=== PATIENT | male | born 1945 | race Caucasian/White ===

== ENCOUNTER 2016-02-28 11:02 | Day surgery (SDC) | payer MEDICARE ==
[~2016-02-28 11:02] MED LIST: APRACLONIDINE HCL 50 DROP BTL LEFTEYE PRN; PHENYLEPHRINE HCL 50 DROP BTL LEFTEYE PRN; TROPICAMIDE 150 DROP BTL LEFTEYE PRN
[2016-02-28 11:20] VITALS: BP 141/72
== END 2016-02-28 11:03 | disposition home or self-care (01) ==
LOC: AMB 11:02
PROVIDERS: ATTEND Ophthalmology
PROC: 085K3ZZ Destruction of Left Lens, Percutaneous Approach (ICD-10-PCS; principal; 2016-02-28 11:00)
DX: H26.492 Other secondary cataract, left eye (principal)

== ENCOUNTER 2016-07-22 16:12 | Emergency (ER) | payer MEDICARE ==
--- OUTSIDE RECORDS SUMMARY | 2016-07-22 16:22 | XMS REPORT | Continuity of Care Document ---
:1945 Author Organization [facility] [place] [address] Care Team Providers Name Role Phone Provider, Not In System Primary Care Provider Unavailable Source Comments This disclosure is being made pursuant to the [employer] program and maynot contain all information available regarding this patient.[facility] Active Allergies and Adverse Reactions No Known Allergies Current Medications Be aware that medications may not be up to date as of this document. Alwaysverify current medications with the patient. Prescription Sig. Disp. Refills Start Date End Date Status amLODIPine (NORVASC) Take 5 mg by mouth Active 5 MG tablet daily. citalopram (CELEXA) Take 40 mg by mouth Active 40 MG tablet daily. disopyramide Take 150 mg by Active (NORPACE) 150 MG mouth 4 (four) capsule times daily. Every 6 hrs fluticasone (FLONASE) 1 spray by Nasal Active 50 MCG/ACT nasal route 2 (two) times spray daily. metoprolol tartrate Take 25 mg by mouth Active (LOPRESSOR) 25 MG 2 (two) times tablet daily. pramipexole (MIRAPEX) Take 0.5 mg by Active 0.5 MG tablet mouth daily. simvastatin (ZOCOR) Take 20 mg by mouth Active 20 MG tablet nightly. oxygen Inhale 2 L/min into Active the lungs as needed. sob folic acid (FOLVITE) Take 400 mcg by Active 400 MCG tablet mouth daily. Multiple Take by mouth. Active Vitamins-Minerals (MULTIVITAMIN PO) albuterol (PROVENTIL Inhale 1 puff into Active HFA;VENTOLIN HFA) 108 the lungs every 6 (90 BASE) MCG/ACT (six) hours as inhaler needed. Indications: Chronic Obstructive Lung Disease oxyCODONE Take 1-2 tablets by 60 tablet 0 11/01/2012 Active (ROXICODONE) 5 MG mouth every 4 immediate release (four) hours as tablet needed (breakthrough pain). aspirin 325 MG tablet Take 1 tablet by 30 tablet 0 11/01/2012 Active mouth daily. Active Problems Problem Noted Date Arthritis of left shoulder region 10/30/2012 Sleep apnea Overview: uses cpap Arrhythmia Overview: ? SVT-no problems x 10yrs since being on meds Tremor, essential Overview: "all over for many yrs" Anxiety COPD (chronic obstructive pulmonary disease) ([facility]) Overview: sleeps on 3 pillow at night;sob on overexertion;uses o2 prn with hot/cold weather Social History Tobacco Use Types Packs/Day Years Used Date Former Smoker Comments:quit 30 yr ago; prior hx 4 ppd Alcohol Use Drinks/Week oz/Week Comments Yes 3-4 can beer/ day Last Filed Vital Signs Vital Sign Reading Time Taken Blood Pressure 144/82 11/01/2012 8:07 AM CDT Pulse 80 11/01/2012 8:07 AM CDT Temperature 36.8 C (98.2 F) 11/01/2012 8:07 AM CDT Respiratory Rate 16 11/01/2012 8:07 AM CDT Height 1.727 m (5' 8") 10/31/2012 8:42 AM CDT Weight 106.595 kg (235 lb) 10/31/2012 8:42 AM CDT Body Mass Index 35.74 10/31/2012 8:42 AM CDT Oxygen Saturation 94% 11/01/2012 8:07 AM CDT Plan of Care Health Maintenance Due Date Last Done Comments Tetanus/Pertussis (1 - Tdap) 1965 Colonoscopy 1996 Well Adult Visit 1996 Zoster Vaccine 60+ 2006 Pneumococcal Low/Medium Risk 65+ (1 of 2 - PCV13) 10/15/2011 Influenza Immunization (#1) 2015 Results from Last 3 Months Not on file
--- OUTSIDE RECORDS SUMMARY | 2016-07-22 16:23 | XMS REPORT | Continuity of Care Document ---
:1945 Author Organization [facility] ([facility]) Address [place] [address] Phone [phone] Care Team Providers Name Role Phone Savanna Delgado Primary Care Provider [phone] Source Comments This disclosure is being made pursuant to the Care Everywhere program, applicable federal and state laws, and may not contain all informaitonavailable regarding this patient.[facility] ([facility]) Active Allergies and Adverse Reactions No Known Allergies Current Medications Prescription Sig. Disp. Refills Start Date End Date Status albuterol 90 inhale 1 puff by 02/24/2014 Active mcg/Actuation inhaler inhalation route every 4 - 6 hours as needed aspirin 325 mg tablet take 1 tablet by 02/24/2014 Active oral route every day solifenacin (VESICARE) 10 Take 10 mg by mouth Active mg tablet daily. levothyroxine 100 mcg Take 100 mcg by Active tablet mouth every morning before breakfast. simvastatin 10 mg tablet Take 10 mg by mouth Active every evening. metFORMIN 500 mg tablet Take 500 mg by Active mouth 2 times daily with meals. FLUoxetine 40 mg capsule Take 40 mg by mouth Active 2 times daily. ferrous sulfate 325 mg Take 325 mg by Active (65 mg iron) tablet mouth 3 times daily. cholecalciferol 50,000 Take 1 capsule by Active unit capsule mouth daily. fluticasone 50 Use 2 Sprays into Active mcg/Actuation nasal spray both nostrils daily. furosemide 20 mg tablet Take 20 mg by mouth Active every morning. pyridostigmine 60 mg Take 30 mg by mouth Active tablet 2 times daily. metoPROLol tartrate 25 mg Take 25 mg by mouth Active tablet 2 times daily. Active Problems Problem Noted Date Essential hypertension 09/22/2014 Hyperlipidemia 09/22/2014 Paroxysmal atrial fibrillation 09/22/2014 Social History Tobacco Use Types Packs/Day Years Used Date Former Smoker Last Filed Vital Signs Vital Sign Reading Time Taken Blood Pressure 130/80 03/08/2016 12:13 PM NETWORK DEVELOPMENT COORDINATOR Pulse 72 03/08/2016 12:13 PM NETWORK DEVELOPMENT COORDINATOR Temperature - - Respiratory Rate - - Height - - Weight 112.946 kg (249 lb) 03/08/2016 12:13 PM NETWORK DEVELOPMENT COORDINATOR Body Mass Index - - Oxygen Saturation - - Plan of Care Date Type Specialty Providers Description 03/21/2017 Appointment Heart and Vascular David Doss, Chief Comp: Patient MD Reported Reason For [address] [place] [address] [phone] (Fax) Health Maintenance Due Date Last Done Comments HCV Screening 1945 Hepatitis B Vaccine (1 of 3 - Primary Series) 1945 Tdap Vaccine 1957 Lipid Disorder Screening 1964 Td Vaccine 1964 Colonoscopy 10/13/1996 Prostate Cancer Screening 1996 Zoster Vaccine 2006 Pneumococcal Vaccine (1 of 2 - PCV13) 10/15/2011 Influenza Vaccine: Seasonal (#1) 09/20/2015 Results from Last 3 Months Not on file
[2016-07-22] MEDS ORDERED: ACYCLOVIR 800 MG TABLET PO ONE (16:50)
[2016-07-22] MEDS ORDERED: oxyCODONE HCL/ACETAMINOPHEN 1 TAB TABLET PO ONE (16:52)
[2016-07-22] MEDS ORDERED: diphenhydrAMINE HCL 25 MG CAPSULE PO ONE (16:53)
[2016-07-22] MEDS ORDERED: oxyCODONE HCL/ACETAMINOPHEN 1 TAB TABLET ONE ×2 (17:00→17:04)
[2016-07-22] MEDS ORDERED: diphenhydrAMINE HCL 25 MG CAPSULE ONE ×2 (17:00→17:04)
[2016-07-22] MEDS ORDERED: ACYCLOVIR 800 MG TABLET ONE ×2 (17:01→17:04)
--- NOTE | 2016-07-22 17:01 | ERNOTE ---
Integumentary HPI - Narrative Date of Service: 07/22/16 - General Presenting Symptoms: rash Time Seen by Provider: 07/22/16 16:17 Source: patient Exam Limitations: no limitations - Immun/Allergies/Home Medications Immunizations: IMMUNIZATION HX Immunizations Up to Date Yes History of Influenza Vaccine Yes Hx Pneumococcal Vaccination Yes Allergies/Adverse Reactions: Allergies Allergy/AdvReac Type Severity Reaction Status Date / Time No Known Allergies Allergy Verified 07/22/16 16:25 Home Medications: HOME MEDICATIONS Citalopram Hydrobromide [Citalopram HBr] 40 mg PO DAILY 01/27/12 [Last Taken Unknown] Albuterol Sulfate [Albuterol Sulfate Hfa] 2 puff IH Q4H PRN 01/22/13 [Last Taken 11/08/14] Folic Acid 0.4 mg PO DAILY 01/22/13 [Last Taken Unknown] Multivitamins [Multivitamin Kimberlee] 1 cap PO DAILY 01/22/13 [Last Taken Unknown] Simvastatin 20 mg PO HS 01/22/13 [Last Taken 09/21/13 21:00] Potassium Chloride [Klor-Con 10] 10 meq PO DAILY 09/11/13 [Last Taken Unknown] Aspirin 325 mg PO DAILY 01/29/14 [Last Taken 10/13/14] Flecainide Acetate [Tambocor] 50 mg PO BID 11/05/14 [Last Taken Unknown] Sodium Chloride [Saline Nasal Mist] 2 spray NS BID PRN 11/05/14 [Last Taken Unknown] Fluticasone/Vilanterol [Breo Ellipta 100-25 Mcg INH] 1 puff IH DAILY 06/28/15 [ Last Taken Unknown] Pramipexole Di-HCl [Mirapex] 0.5 mg PO TID 06/28/15 [Last Taken Unknown] Albuterol Sulfate [Albuterol Sulfate 2.5 MG/0.5ML] 2.5 mg IH Q6H #30 vial.neb [Last Taken Unknown] Albuterol Sulfate/Ipratropium [Duoneb 2.5-0.5MG/3ML Soln] 3 ml IH Q6HRT #30 nebu 09/22/15 [Last Taken Unknown] Amlodipine Besylate [Norvasc] 2.5 mg PO BID #60 tab 08/03/16 [Last Taken Unknown ] Metoprolol Tartrate [Lopressor] 25 mg PO BID #60 tablet 09/22/15 [Last Taken Unknown] predniSONE [Prednisone] 20 mg PO DAILY #15 tablet 09/22/15 [Last Taken Unknown] Acyclovir [Zovirax] 800 mg PO 5XD #50 tab 07/22/16 [Last Taken Unknown] oxyCODONE HCL/ACETAMINOPHEN [Percocet 5 MG/325 MG] 1 tab PO Q4H PRN #20 tab 05/05 [Last Taken Unknown] - History of Present Illness Narrative: Pt. comes in with rash to R flank and ribcage that started 2 days ago. Pt. denies any SOB, CP, NVD, dizziness, fever, alleviating factors, aggravating factors or prehospital treatment. Review of Systems - Review of Systems Constitutional: Present: no symptoms reported. Absent: recent illness, fever, chills, weakness, fatigue, malaise EYE: Present: no symptoms reported ENT: Present: no symptoms reported Respiratory: Present: no symptoms reported. Absent: shortness of breath, cough , wheezing Cardiology: Present: no symptoms reported. Absent: chest pain, palpitations, edema Gastrointestinal/Abdominal: Present: no symptoms reported. Absent: nausea, vomiting, diarrhea Genitourinary: Present: no symptoms reported Musculoskeletal: Present: back pain - R flank and ribs Skin: Present: rash - R flank and rib cage Neurological: Present: no symptoms reported. Absent: headache, dizziness/light- headedness, numbness, tingling All Other Systems: All systems neg except as marked - Patient's Past Medical History Patient History - Medical: Arthritis, Cataracts, Osteoporosis Patient History - Cardiac/Respiratory: COPD Patient History - Cancer: No Hx of Cancer Patient History - Surgical Procedures: Cataracts, Total Hip Replacement, Total Knee Replacement, Other Patient History - Other: None - Family History Brother Family History - Medical: , No pertinent hx Family History - Cardiac/Respiratory: No pertinent hx Father Family History - Medical: Family History - Cardiac/Respiratory: No pertinent hx, Myocardial Infarction Mother Family History - Medical: , No pertinent hx Family History - Cardiac/Respiratory: Myocardial Infarction Sister Family History - Medical: , Diabetes Type 2 Family History - Cardiac/Respiratory: No pertinent hx - Social History Living Situations: home Abuse History: No History of abuse Psych History: No pertinent hx Does anyone smoke in the home?: No Smoking Status: Former smoker Alcohol Use: heavy Drug Use: none - Immunizations Immunizations Up to Date: Yes Hx Pneumococcal Vaccination: Yes History of Influenza Vaccine: Yes Physical Exam - Physical Exam General Appearance: Present: wd/wn, alert, no apparent distress Eye Exam: Normal inspection: bilateral, PERRL: bilateral, EOMI: bilateral Ears, Nose, Throat: Present: normal ENT inspection, normal pharynx Neck: Present: normal inspection, nontender. 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 has no other symptoms so will start on acyclovir and have him follow up with his PCP on Sunday - Vital Signs Patient's Vital Signs:: I have reviewed the patient's vital signs. Vital Signs: Vital Signs 07/22/16 16:15 Temperature 35.7 C L Pulse Rate 81 Respiratory 16 Rate Blood Pressure 150/65 O2 Sat by Pulse 94 Oximetry - Progress/Reassessment Chief Complaint: Rash Departure Clinical Impression: Shingles rash Qualifiers: Herpes zoster complications: without complications Qualified Code(s): B02.9 - Zoster without complications - Departure Disposition: Home self-care Condition: Good Instructions: Shingles, [id number] Additional Instructions: Please follow up with primary provider in 2-3 days for follow up. Please take benadryl over the counter every 6 hours as needed for itching. Referrals: Savanna Delgado MD [Primary Care Provider] - Prescriptions: Acyclovir [Zovirax] 800 mg PO 5XD #50 tab oxyCODONE HCL/ACETAMINOPHEN [Percocet 5 MG/325 MG] 1 tab PO Q4H PRN #20 tab PRN Reason: Pain
[2016-07-22 17:16] VITALS: BP 146/86
== END 2016-07-22 17:17 | disposition home or self-care (01) ==
LOC: ER 16:12
DX: B02.9 Zoster without complications (principal); J44.9 Chronic obstructive pulmonary disease, unspecified; Z87.891 Personal history of nicotine dependence

== ENCOUNTER 2017-04-07 12:47 | Emergency (ER) | payer MEDICARE ==
[2017-04-07 12:57] VITALS: BP 146/76
--- NOTE | 2017-04-07 13:34 | ERNOTE ---
Upper Extremity HPI - Narrative Date of Service: 04/07/17 - General Extremities Pain Location: elbow: right Time Seen by Provider: 04/07/17 13:21 Source: patient, family, RN notes reviewed Exam Limitations: no limitations - Immun/Allergies/Home Medications Immunizations: IMMUNIZATION HX Immunizations Up to Date Yes History of Influenza Vaccine Yes Hx Pneumococcal Vaccination Yes Allergies/Adverse Reactions: Allergies Allergy/AdvReac Type Severity Reaction Status Date / Time No Known Allergies Allergy Verified 04/07/17 13:00 Home Medications: HOME MEDICATIONS Citalopram Hydrobromide [Citalopram HBr] 40 mg PO DAILY 01/27/12 [Last Taken Unknown] Albuterol Sulfate [Albuterol Sulfate Hfa] 2 puff IH Q4H PRN 01/22/13 [Last Taken 11/08/14] Multivitamins [Multivitamin Kimberlee] 1 cap PO DAILY 01/22/13 [Last Taken Unknown] Simvastatin 20 mg PO HS 01/22/13 [Last Taken 09/21/13 21:00] Potassium Chloride [Klor-Con 10] 10 meq PO DAILY 09/11/13 [Last Taken Unknown] Flecainide Acetate [Tambocor] 50 mg PO BID 11/05/14 [Last Taken Unknown] Pramipexole Di-HCl [Mirapex] 0.5 mg PO TID 06/28/15 [Last Taken Unknown] Albuterol Sulfate [Albuterol Sulfate 2.5 MG/0.5ML] 2.5 mg IH Q6H #30 vial.neb [Last Taken Unknown] Amlodipine Besylate [Norvasc] 2.5 mg PO BID #60 tab 09/22/15 [Last Taken Unknown ] Metoprolol Tartrate [Lopressor] 25 mg PO BID #60 tablet 09/22/15 [Last Taken Unknown] Warfarin Sodium [Coumadin] 5 mg PO DAILY 09/06/16 [Last Taken Unknown] Folic Acid 0.4 mg PO DAILY 02/12/17 [Last Taken Unknown] Furosemide 20 mg PO DAILY 02/12/17 [Last Taken Unknown] Warfarin Sodium [Coumadin] 2.5 mg PO DAILY 04/07/17 [Last Taken Unknown] - History of Present Illness Narrative: 71 year old male presents to the ED with his for an injury to his right elbow that occurred at home shortly [employer]. He slipped and fell on the ice while trying to catch an escaped chicken. He is on Coumadin and reports severe swelling in the elbow. He also has mild discomfort in the right shoulder. The shoulder has been replaced. He reports having his usual ROM in the shoulder. He denies any head injury or LOC. Occurred: just prior to arrival Location of Incident: home Method of Injury: Reports: fell Reason for Fall: Reports: slipped Loss of Consciousness: Reports: no loss of consciousness Associated Symptoms: Denies: tingling, weakness, numbness distally Other Injuries: Reports: none Prior Treament: Denies: recently seen Review of Systems - Review of Systems Constitutional: Absent: recent illness, fever, malaise EYE: Present: no symptoms reported ENT: Present: no symptoms reported Respiratory: Present: no symptoms reported Cardiology: Present: no symptoms reported Gastrointestinal/Abdominal: Present: no symptoms reported Genitourinary: Present: no symptoms reported Musculoskeletal: Present: See HPI. Absent: back pain, neck pain Skin: Present: lumps. Absent: lesions Neurological: Present: See HPI. Absent: headache, dizziness/light-headedness Endocrine: Present: no symptoms reported Hematologic/Lymphatic: Present: easy bruising, easy bleeding Psych: Present: no symptoms reported - Patient's Past Medical History Patient History - Medical: Depression Patient History - Cardiac/Respiratory: Bronchitis, COPD, CVA/Stroke, Hyperlipidemia, Myocardial Infarction, Pneumonia Patient History - Cancer: No Hx of Cancer Patient History - Surgical Procedures: Orthopedic Patient History - Other: None - Family History Brother Family History - Medical: , No pertinent hx Family History - Cardiac/Respiratory: No pertinent hx Father Family History - Medical: Family History - Cardiac/Respiratory: No pertinent hx, Myocardial Infarction Mother Family History - Medical: , No pertinent hx Family History - Cardiac/Respiratory: Myocardial Infarction Sister Family History - Medical: , Diabetes Type 2 Family History - Cardiac/Respiratory: No pertinent hx - Social History Living Situations: spouse Abuse History: No History of abuse Psych History: Hx of Depression Smoking Status: Never smoker Have you smoked in the past 12 months: No Do you dip or chew tobacco: No Alcohol Use: occasionally Drug Use: none - Immunizations Immunizations Up to Date: Yes Hx Pneumococcal Vaccination: Yes History of Influenza Vaccine: Yes Physical Exam - Physical Exam General Appearance: Present: wd/wn, alert, no apparent distress Head Exam: Present: normal inspection, no evidence of injury Neck: Present: normal inspection, nontender, supple Respiratory: Present: no respiratory distress, no accessory muscle use Cardiovascular/Chest: Present: normal peripheral pulses Extremity Exam: Present: decreased range of motion - Right elbow, joint swelling - Right elbow - just distal to olecranon process. Absent: bony tenderness, joint redness Neurological Exam: Present: alert, oriented, normal mood/affect, no motor/ sensory deficits Skin Exam: Present: normal color, warm/dry ED Progress - Vital Signs Patient's Vital Signs:: I have reviewed the patient's vital signs. Vital Signs: Vital Signs 04/07/17 12:54 Temperature 37.1 C Pulse Rate 70 Respiratory 16 Rate Blood Pressure 146/76 O2 Sat by Pulse 96 Oximetry - X-Ray X-Ray #1 X-Ray: elbow - Right Interpretation: Interp. by me X-ray Comments: Soft tissue swelling noted without acute osseous abnormality - Progress/Reassessment Chief Complaint: Upper Extremity Injury/Problem Progress:: Unchanged Departure Clinical Impression: Contusion, elbow Qualifiers: Encounter type: initial encounter Laterality: right Qualified Code(s): S50.01XA - Contusion of right elbow, initial encounter - Departure Disposition: Home self-care Condition: Good Instructions: Contusion, [id number] Additional Instructions: Continue your current medications Wear LAURA wrap as needed for support/compression Ice periodically Tylenol for pain Follow up with your doctor as needed for new/worsening symptoms Referrals: Savanna Delgado MD [Primary Care Provider] -
== END 2017-04-07 14:30 | disposition home or self-care (01) ==
LOC: ER 12:47
DX: S50.01XA Contusion of right elbow, initial encounter (principal); J44.0 Chronic obstructive pulmonary disease with (acute) lower respiratory infection; E78.5 Hyperlipidemia, unspecified; I25.2 Old myocardial infarction; Z86.73 Personal history of transient ischemic attack (TIA), and cerebral infarction without residual deficits; Z79.01 Long term (current) use of anticoagulants; Z96.611 Presence of right artificial shoulder joint; W00.0XXA Fall on same level due to ice and snow, initial encounter

== ENCOUNTER 2018-01-14 05:58 | Inpatient (IN) | payer MEDICARE ==
[2018-01-14] MEDS ORDERED: RINGER'S SOLUTION,LACTATED 1,000 ML IV PRN (06:00)
[2018-01-14] MEDS ORDERED: ROPIVACAINE HCL/PF 100 MG, EPINEPHrine 0.2 MG, KETOROLAC TROMETHAMINE 30 MG in NORMAL S... IJ PRN (06:00)
[2018-01-14] MEDS ORDERED: ceFAZolin SODIUM 1 GM VIAL IV PRN (06:00)
[2018-01-14] MEDS ORDERED: ROPIVACAINE HCL/PF 40 MG in NORMAL SALINE 16 ML IJ PRN (06:00)
[2018-01-14] MEDS ORDERED: TRANEXAMIC ACID 1,000 MG in NORMAL SALINE 100 ML IV PRN (06:00)
[2018-01-14] MEDS ORDERED: BUPIVACAINE HCL/EPINEPHRINE 50 ML VIAL IJ PRN (06:00)
--- NOTE | 2018-01-14 06:59 | ANES ---
Anesthesia Pre Procedure Eval Vitals/Labs: Last Vital Signs Temp 36.7 C 01/14/18 06:20 Pulse 62 01/14/18 06:20 Resp 16 01/14/18 06:20 BP 142/75 01/14/18 06:20 Pulse Ox 94 01/14/18 06:20 HOME MEDICATIONS Albuterol Sulfate [Albuterol Sulfate Hfa] 2 puff IH Q4H PRN 01/22/13 [Last Taken 11/08/14] Multivitamins [Multivitamin Kimberlee] 1 cap PO DAILY 01/22/13 [Last Taken 01/13/18] Pramipexole Di-HCl [Mirapex] 0.5 mg PO TID 06/28/15 [Last Taken 01/13/18] Albuterol Sulfate [Albuterol Sulfate 2.5 MG/0.5ML] 2.5 mg IH Q6H #30 vial.neb 09/22/15 [Last Taken 01/13/18] traMADol HCL [Ultram] 50 mg PO QID PRN #30 tab 09/17/17 [Last Taken Unknown] furosemide 20 mg tablet 20 mg PO DAILY #90 tab 09/24/17 [Last Taken 01/13/18] metoprolol tartrate 25 mg tablet 25 mg PO BID #60 tab 09/26/17 [Last Taken 01/14/18] rosuvastatin 10 mg tablet 10 mg PO DAILY #90 tab 10/29/17 [Last Taken 01/13/18] flecainide 100 mg tablet 50 mg PO BID #60 tab 11/22/17 [Last Taken 01/14/18] Budesonide/Formoterol Fumarate [Symbicort 160-4.5 Mcg Inhaler] 10.2 gm INHALATION 11/27/17 [Last Taken Unknown] potassium chloride ER 10 mEq tablet,extended release(part/cryst) 10 meq PO DAILY #90 tab 12/26/17 [Last Taken 01/13/18] citalopram 40 mg tablet 40 mg PO DAILY #90 tab 01/02/18 [Last Taken 01/13/18] warfarin 2.5 mg tablet 2.5 mg PO QMWF #36 tab 01/02/18 [Last Taken 01/08/18] warfarin 5 mg tablet 5 mg PO QTUTHSASU tab 01/02/18 [Last Taken 01/08/18] amlodipine 2.5 mg tablet 2.5 mg PO BID #60 tab 01/09/18 [Last Taken 01/13/18] Allergies/Adverse Reactions: Allergies Allergy/AdvReac Type Severity Reaction Status Date / Time No Known Allergies Allergy Verified 01/14/18 06:16 - Planned Procedure Planned Procedure: LTK, Right Knee Scope Medication List Reviewed:: Yes Allergies Verified: Yes Medical History (Last Reviewed 01/14/18 @ 06:44 by Babar Gilliland CRNA) Arthritis Onset Date: 2014 Rt foot Asthma Onset Date: Unknown COPD (chronic obstructive pulmonary disease) Onset Date: Unknown CPAP (continuous positive airway pressure) dependence Setting on 9 Cubital tunnel syndrome Onset Date: 2009 Avelino mild per EMGs Degenerative joint disease (DJD) of hip Onset Date: Unknown Dupuytren's contracture of right hand Onset Date: 03/2011 Hammer toe of second toe of right foot Onset Date: 2014 Hyperlipidemia Onset Date: Unknown Knee pain, right Onset Date: Unknown Osteoporosis Onset Date: Unknown Parkinsonism Onset Date: Unknown Primary Sleep apnea Onset Date: Unknown Carpal tunnel syndrome Onset Date: 02/2010 Moderate left and mild right per EMGs 02/2010. Also prev hx and sx Contusion of elbow, right Onset Date: 04/18/17 Finger mass, right Onset Date: 11/2011 Dr. Pulido. Rt index finger mass removal Hx of wrist surgery Onset Date: 2004 Bilateral cubital tunnel surgery Dr. Pulido. 04/12/10 right 05/12/10 left Surgical History (Last Reviewed 01/14/18 @ 06:45 by Babar Gilliland CRNA) History of carpal tunnel surgery Avelino 1998. Dr. Pulido redo right 04/12/10 History of hand surgery Right - Dr. Pulido. Partial palmar fasciectomy for Dupuytren contracture nodule. History of left hip replacement Onset Date: 02/03/13 02/03/13 History of left shoulder replacement Onset Date: 2012 History of right shoulder replacement Onset Date: 05/09/06 Shelly History of toe surgery Hammer toe. Dr. Velasquez. 02/02/10 2nd left. 11/09/14 rt 2nd Hx of arthrodesis Onset Date: 11/09/14 rt foot navicular cuneiform Hx of arthroscopic knee surgery Onset Date: 11/07/[address] Pulido Hx of cataract surgery Onset Date: 07/05/15 Dr Nuñez. Left eye. Also right. Knee repair Onset Date: 2005 Right Family History (Last Reviewed 01/14/18 @ 06:45 by Babar Gilliland CRNA) Brother No problems noted. Brother Cancer Lung cancer Father , Age 62 Brain tumor Ulcerative colitis History of colon resection Mother , Age 90's Myocardial infarction Sister Alive and well Sister , 2 - One at . One age 60's w/leukemia. Leukemia Diabetes DM - Family Anesthesia History Family History:: no untoward family reactions to anesthesia, no familial bleeding tendencies, no family history of clotting disorders, no family history of premature - Airway/Neck/Teeth Within Normal Limits:: No Teeth Condition: Darkened, Broken Neck Exam: non-tender, limited range of motion Mallampatti Score: 4 Thyromental (T-M) distance: > 6 cm Mandibulo Hyoid distance: > 3 cm - Respiratory Respiratory: chest non-tender, lungs clear, decreased breath sounds Smoking Status: Former smoker Sleep Apnea currently treated: Yes Sleep Apnea by current assessment: Yes Discussed Risks/Treatment of CELSA: Yes - Cardiovascular Patient History - Cardiac/Respiratory: Atrial Fibrillation, Arrhythmias, Hypertension, Home O2 Use, CPAP/BiPAP Home Use, Sleep Apnea Tolerates Activity: Fair - uses walker currently Heart Sounds: S1 & S2, Irregular - Anesthesia Assessment and Plan ASA Class: PS, III Anesthesia Type Plan: Block - Adductor canal block for post op pain relief, Spinal - pending INR Planned difficult intubation/equipment available: Yes - standby
[2018-01-14] MEDS: RINGER'S SOLUTION,LACTATED 1,000 ML IV PRN ×3 (07:12→10:04)
[2018-01-14] MEDS ORDERED: BUPIVACAINE HCL/EPINEPHRINE 50 ML VIAL IJ ONE (08:40)
[2018-01-14] MEDS ORDERED: ONDANSETRON HCL/PF 2 MG/ML VIAL IV PRN (10:50)
[2018-01-14] MEDS ORDERED: MAGNESIUM HYDROXIDE 30 ML UDC PO PRN (10:50)
[2018-01-14] MEDS ORDERED: MAG HYDROX/ALUMINUM HYD/SIMETH 30 ML UDC PO PRN (10:50)
[2018-01-14] MEDS ORDERED: ACETAMINOPHEN 500 MG TABLET PO PRN (10:50)
[2018-01-14] MEDS ORDERED: DEXTROSE 5%-LACTATED RINGERS 1,000 ML IV PRN (10:50)
[2018-01-14] MEDS ORDERED: MORPHINE SULFATE 2 MG/ML DISP.SYRIN IV PRN (10:50)
[2018-01-14] MEDS ORDERED: ZOLPIDEM TARTRATE 5 MG TABLET PO PRN (10:50)
[2018-01-14] MEDS ORDERED: oxyCODONE HCL/ACETAMINOPHEN 1 TAB TABLET PO PRN (10:50)
[2018-01-14] MEDS ORDERED: diphenhydrAMINE HCL 50 MG/ML VIAL IV PRN (10:50)
--- NOTE | 2018-01-14 10:50 | OR ---
Operative Report - Dictated Report Narrative: Date: 01/14/2018 Preoperative diagnosis: 1. Left Knee degenerative joint disease. 2. 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 Left Knee degenerative joint disease. 2. 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 Left Total knee arthroplasty. 2. Right knee arthroscopy with debridement of hypertrophic scar tissue Surgeon: Rey Queen M.D. Family Medicine Chair: Kvng Saravia PA-C (provided a set of educated, skilled hands that assisted with transfer, positioning, prepping, manipulation, retraction, placement of jigs, suturing, and placement of dressings all which cannot be performed by the surgical crew) Anesthesia: Spinal with regional block on the left and local periarticular joint injection bilateral. Complications: None Specimens: Bone for disposal. Estimated blood loss: Minimal. Tourniquet time: 21 minutes Minutes at at 275 millimeters of mercury on the right, 95 minutes at 325 mmHg on the left. Retained implants: Depuy Attune size 7 left lugged cemented posterior stabilized femoral component. Size 7 fixed-bearing cemented tibial platform. 7 by 5 millimeter posterior stabilized cross-linked tibial insert. 41 millimeter medialized patella button. Indications: Mr. Garcia is a 72-year-old gentleman who presenting with a right total knee arthroplasty and developed patellofemoral crepitance. He also had long-standing left knee pain and arthrosis. This patient was followed in my clinic for period of time with significant complaints of left knee pain consistent with arthritic changes. He had failed conservative measures including, but not limited to, activity modification, passage of time, medications, and other conservative measures. Patient wished to proceed with surgical treatment. The risks, benefits, and alternatives were discussed in clinic. The risks of , blood clots, bleeding, infection, nerve/tendon blood vessel/ injury, malposition of components, intraoperative fracture, postoperative limited range of motion, persistent pain, failure of components, and need for additional procedures. Patient wished to proceed consent was obtained after answering all questions. Procedure: After marking the correct extremity on the floor, the patient was taken to the operating room. A timeout was performed. IV antibiotics consisting of Ancef were administered prior to the procedure. A regional followed by spinal anesthetic was induced by anesthesia, per my request, on the operative table with all bony prominences well-padded. English catheter was placed, and a bump was placed under the operative side buttock. SCDs were utilized on the nonoperative leg. Initial attention was turned to the right leg. A well-padded tourniquet was applied to the operative upper thigh. The leg was prepped and draped in a standard sterile fashion. 0.5% Marcaine with epinephrine was infused into the projected portal sites as well as the intra-articular space. A cindy incision was made for inferior lateral portal. A blunt trocar and cannula was introduced into the knee. The suprapatellar pouch revealed significant hypertrophic scar tissue which impinged between the patellofemoral joint. The patella button and metallic portion of the femur was unremarkable. The tibial insert and tibial tray were unremarkable. There were some areas of scar tissue impinging between the notch and the medial joint space. A superior lateral portal was utilized in order to abrade the hypertrophic scar tissue with a shaver. A switching stick was utilized in order to ensure we could reach all the inferior areas. Once we felt that we adequately debrided the offending tissues the knee was thoroughly irrigated. Final images were obtained. The fluid was then evacuated of the knee, and the trocar and camera were removed from the joint. The wounds were closed with interrupted nylon after placing 20 mL of 0.2% ropivacaine into the joint. Dressings consisting of Xeroform, 4 x 4, ABD, soft roll, and an Sumit were applied. We then took down the drapes and turned our attention to the left leg. A well- padded tourniquet was applied to the operative thigh. The operative leg was then pre-scrubbed with alcohol prepped, and draped in a standard sterile fashion. After exsanguinating the extremity with an Esmarch bandage, the tourniquet was inflated. After marking out the anterior knee for standard incision centered over the patella, the skin was incised and dissected down to the joint retinaculum. The joint retinaculum was marked out as well as the horizontal axis of the patella, and a standard medial parapatellar arthrotomy was then made. The most proximal aspect of the quadriceps tendon and the patella tendon insertion were protected from release. A partial synovectomy was performed as well as a resection of the infrapatellar fat pad. The distal femoral fat pad proximal to the trochlea was also resected using cautery. The soft tissues were elevated off the medial aspect of the proximal tibia using a Tena elevator ensuring that we did not transect the medial collateral ligament. Upon initial evaluation range of motion was approximately 0 degrees to 120 degrees of flexion. There were signs of advanced arthrosis in the medial, lateral, and patellofemoral joint spaces. There were large marginal osteophytes which were removed with a rongeur. The knee was hyperflexed and the patella was tucked laterally. Protecting the surrounding soft tissues with Homans, an entry drill was placed down the femoral canal using Whitesides line for guidance into the entry point. The intramedullary femoral alignment daniela was utilized in order to cut the distal femur in 5 degrees of valgus resecting 10 millimeters of bone. Next the distal femur was sized to a size 7. A posterior referencing guide was utilized to place the distal femoral cutting block in 3 degrees of external rotation. This was pinned into place. The rotation was confirmed both visually and based on anatomic landmarks. The 4 in 1 cutting jig of the appropriate size was utilized in order to make all bony cuts. The angle wing was used to ensure no notching. Retractors were utilized in order to protect surrounding soft tissues. This cut did not result in any excessive notching. We then cut the box centered over the distal femur. This allowed for resection of the anterior and posterior cruciate ligaments. I then turned my attention to the preparation of the tibia. Using an extra medullary tibial alignment daniela, 3 millimeters of bone was resected off the medial articular surface. This was made perpendicular to the mechanical axis of the joint with the alignment daniela centered over the ankle mortise. The alignment daniela was checked and was noted to be parallel to the mechanical axis, centered over the medial one third of the tibial tubercle, paralleling the anterior surface of the tibia. We then turned our attention to the remaining meniscus and soft tissues. These were removed while protecting the surrounding ligaments and soft tissues. The marginal osteophytes off the anterior, posterior, medial, lateral aspects of the femur and tibia were removed. The tibia was sized out to a size 7. Next the tibia was drilled and punched in an externally rotated position. Next the trial femur and a series of tibial inserts were utilized in order to allow for full extension and maximal flexion. It was found that a 5 millimeter insert gave the best range of motion and stability at multiple flexion points as well as at full extension there was less than 2 mm of gapping both medially and laterally. There is minimal anterior translation with the knee at 90 degrees of flexion and no signs of being able to dislocate the knee. The patella was then prepared. The initial thickness was 26 millimeters. This was reamed down to 16 millimeters parallel to the anterior surface of the patella. It was sized out to a size 41 medialized patella button. This was then drilled and trialed. Without any medial restraint the patella tracked appropriately and did not sublux or dislocate. At this point, it was felt these were the appropriate sized implants, and all trials were removed. The standard periarticular joint injection consisting of ropivacaine, Toradol, and epinephrine were injected into the periarticular joint tissues. The bony surfaces were thoroughly irrigated with a pulsatile-suction saline irrigation device. A bone plug from the prior resected anterior chamfer cut was placed into the drill hole at the distal femur. The bony surfaces were then dried in preparation for placement of the implants. The cement was vacuum mixed per the atm technician's instructions. The cement was placed on the dry bony surfaces and posterior aspect of the implants. The implants were impacted into place, removing all extruded cement. At this point anesthesia administered tranexamic acid per protocol intravenously. The knee was placed in extension with axial loading with the trial insert while the cement cured. Once the cement cured, all remaining extruded cement was removed. The knee was placed through a range of motion with the trial insert to ensure appropriate range of motion and stability. Final range of motion was approximately 0 to 120 degrees. The knee was again thoroughly irrigated with pulsatile saline lavage. The final polyethylene insert was then impacted into place ensuring no retained soft tissues. The remaining periarticular joint injection was injected. A medium Hemovac drain was placed exiting superior laterally. The knee was then placed over a triangle and the arthrotomy was closed with interrupted #1 Vicryl after thoroughly irrigating the joint. The deep and subcutaneous tissues were closed with interrupted 0 and 3-0 Vicryl respectively. Skin was closed with a running subcutaneous 3-0 Monocryl and Prineo Dermabond dressing. 4 x 4's, Sof-Rol, and a full leg Sumit wrap were applied. All sponge, needle, blade, and instrument cou nts were correct prior to closing the wounds. Postoperative condition: The patient was awoken and transferred to the postanesthesia care unit in stable condition. Plan is to be admitted to the inpatient medical/surgical floor postoperatively for 24 hours of IV antibiotics, physical therapy, occupational therapy, and medical comanagement. Patient will be weightbearing as tolerated with range of motion as tolerated. DVT prophylaxis will be with SCDs, BRYN hose, and pharmacological anticoagulation. Anticipated hospital stay is approximately 1-3 days.
[2018-01-14] MEDS ORDERED: ALBUTEROL SULFATE 2.5 MG/0.5 ML VIAL.NEB IH PRN (10:53)
--- NOTE | 2018-01-14 11:00 | ANES ---
Post Anesthesia Discharge - Transfer of Care Transfer of Care handoff given to nurse: Yes - Discharge from PACU Discharge from PACU when meets criteria: Yes - Alert and comfortable
--- NOTE | 2018-01-14 11:02 | ANES ---
Anesthesia Procedure Note Procedure Note: ANESTHESIA PROCEDURE NOTE Date of Procedure: [01/14/2018 Time of procedure: 8:05 AM. Performed by: ARJUN Sequeira CRNA, MSN Branch Assistant: Izzy Vilchis RN. Preprocedure diagnosis: Post left total knee arthroplasty. Post procedure diagnosis: Same. Procedure: Left adductor Canal Block. Indications: Post left total knee arthroplasty pain relief. Findings: See below. Details of the procedure: The patient was brought to OR #4 and placed in supine position. The patient's left femoral area to the knee was prepped with chlorhexidine and using ultrasound guidance the left femoral artery and nerve was identified and then followed to the level of the adductor canal. Lidocaine 1% was infiltrated to the skin of the intended injection site. Under ultrasound guidance the saphenous nerve was approached with visualization of a 2 inch shielded block needle. Once saphenous nerve was identified with proximity to the needle tip, the saphenous nerve was surrounded with 20 mL bupivacaine 0.25% with 1-200,000 epinephrine. Please see radiology/ultrasound report for details and retained images of the procedure. EBL: 0 Fluids: N/A. Specimen: N/A. Post procedure condition: The patient tolerated the procedure well. No complications were noted. Thank you for this consultation. Babar Gilliland CRNA, ARNP, MSN
[2018-01-14] MEDS: ceFAZolin SODIUM 1 GM in DEXTROSE 5 % IN WATER 100 ML IV SCH ×4 (12:57→19:39)
[2018-01-14] MEDS: KETOROLAC TROMETHAMINE 15 MG/ML VIAL IV SCH ×2 (12:57→17:38)
[2018-01-14] MEDS: PRAMIPEXOLE DI-HCL 0.5 MG TABLET PO SCH ×2 (13:00→17:32)
[2018-01-14] MEDS: ALBUTEROL SULFATE 2.5 MG/0.5 ML VIAL.NEB IH SCH ×2 (13:24→18:16)
--- NOTE | 2018-01-14 13:48 | ANES ---
Post Anesthesia Assessment - Vital Signs Vitals: Last Vital Signs Temp 36.7 C 01/14/18 11:20 Pulse 70 01/14/18 11:20 Resp 16 01/14/18 11:20 BP 154/79 H 01/14/18 11:20 Pulse Ox 94 01/14/18 11:20 Airway Patency: Normal - Mental Status Level Of Consciousness: Awake, Alert - Pain Level Pain Score: 0 - N/V Assessment Nausea/Vomiting Presence: None Dehydration:: No
[2018-01-14] MEDS ORDERED: WARFARIN SODIUM 2.5 MG TABLET PO SCH (17:00)
[2018-01-14] MEDS: METOPROLOL TARTRATE 25 MG TABLET PO SCH (20:56)
[2018-01-14] MEDS: amLODIPine BESYLATE 5 MG TABLET PO SCH (20:57)
[2018-01-14] MEDS: FLECAINIDE ACETATE 100 MG TABLET PO SCH (20:57)
[2018-01-14] MEDS ORDERED: SENNOSIDES/DOCUSATE SODIUM 1 TAB TABLET PO SCH (21:00)
[2018-01-14] MEDS: MORPHINE SULFATE 15 MG TABLET.SA PO SCH (21:00)
[2018-01-15] MEDS: ALBUTEROL SULFATE 2.5 MG/0.5 ML VIAL.NEB IH SCH ×3 (00:03→12:55)
[2018-01-15] MEDS: KETOROLAC TROMETHAMINE 15 MG/ML VIAL IV SCH ×3 (00:10→12:11)
[2018-01-15] MEDS: ceFAZolin SODIUM 1 GM in DEXTROSE 5 % IN WATER 100 ML IV SCH ×2 (00:13)
[2018-01-15 05:38] LABS: Hematocrit 42.6 % (42.0-52.0); Mean Cell Volume 91.8 fl (78-100); Mean Corpuscular Hemoglobin 30.2 pg (27-31); Mean Corpuscular Hgb Conc 32.9 g/dl (32-36); Mean Platelet Volume 9.8 fl (8-11.3); Platelet Count 194 K/mm3 (150-450); Red Blood Count 4.64 M/mm3 (4.7-6.0); Red Cell Distribution Width 13.5 % (11.5-14.0); White Blood Count 11.7 K/mm3 (4.0-10.5)
[2018-01-15 05:45] LABS: Anion Gap 10.9 mmol/L (6.8-13.8); BUN/Creatinine Ratio 12.1 (9.0-21.6); Calcium * 8.2 mg/dL (7.9-10.9); Carbon Dioxide 29.4 mmol/L (24-32.6); Estimated Creat Clear 55.2; Potassium 4.3 mmol/L (3.4-4.6); Prothrombin Time (Patient) 10.4 Seconds (9.0-11.0)
[2018-01-15 05:48] LABS: INR 1.04 INR (0.90-1.10)
[2018-01-15] MEDS: PRAMIPEXOLE DI-HCL 0.5 MG TABLET PO SCH ×3 (06:39→12:12)
[2018-01-15] MEDS ORDERED: CITALOPRAM HYDROBROMIDE 20 MG TABLET PO SCH (09:00)
[2018-01-15] MEDS ORDERED: FUROSEMIDE 20 MG TABLET PO SCH (09:00)
[2018-01-15] MEDS ORDERED: POTASSIUM CHLORIDE 10 MEQ TABLET.SA PO SCH (09:00)
[2018-01-15] MEDS ORDERED: MULTIVITAMINS 1 CAP CAPSULE PO SCH (09:00)
[2018-01-15] MEDS ORDERED: ROSUVASTATIN CALCIUM 10 MG TABLET PO SCH (09:00)
[2018-01-15] MEDS: amLODIPine BESYLATE 5 MG TABLET PO SCH (09:23)
[2018-01-15] MEDS: METOPROLOL TARTRATE 25 MG TABLET PO SCH (09:23)
[2018-01-15] MEDS: FLECAINIDE ACETATE 100 MG TABLET PO SCH (09:23)
[2018-01-15] MEDS: MORPHINE SULFATE 15 MG TABLET.SA PO SCH (09:26)
--- NOTE | 2018-01-15 12:12 | DS ---
(1) Status post total left knee replacement Problem: Acute (2) S/P right knee arthroscopy Problem: Acute (3) Anticoagulant long-term use Problem: Chronic (4) HTN (hypertension) Problem: Chronic Qualifiers: (5) Hyperlipemia Problem: Chronic Qualifiers: (6) Obstructive sleep apnea Problem: Chronic (7) Paroxysmal A-fib Problem: Chronic Description of Stay: Mr. Garcia was admitted to the floor after undergoing left total knee arthroplas ty as well as right knee arthroscopy excision of hypertrophic scar tissue. Tolerated this well. Was admitted to the floor postoperatively for 24 hours of IV antibiotics, pain control, medical comanagement, and occupational and physical therapy. OT and PT were consulted to assist with activities of daily living and ambulation. Was made weightbearing as tolerated with range of motion as tolerated. Pain was initially controlled with IV regimen. This was transitioned to oral once tolerating a by mouth intake. Was resumed on home diet and medications. Had a English catheter inserted and the operating room which was discontinued on postoperative day 1. A drain was placed intraoperatively into the knee which was discontinued on postoperative day 1. Coumadin resumed SCD and BRYN hose were utilized for DVT prophylaxis. Vital signs remained stable to the hospital course. Serial labs were obtained which showed a final hemoglobin of 14.0 grams. BMP was reviewed and was stable. Physical examination throughout the hospital course showed an extremity that had sensation that was intact to light touch, palpable pulses, a benign wound, motor intact to the toes, ankle, and knee. Knee range of motion was approximately 5 degrees to 70 degrees. Once an oral pain regimen was tolerated and physical therapy goals were met, it was felt that they were stable for discharge to home. Instructions: Continue with weightbearing as tolerated and range of motion as tolerated. It is OK to shower on the wound if it is not draining. Right knee keep clean and dry with dressings on for 5 days. After 5 days can remove dressings and shower as long as wounds are draining and covered incisions with Band-Aids. If you note any drainage or for comfort you can cover with dry gauze and tape. Change every 2-3 days as needed. Continue with physical therapy. Resume home diet. Resume his normal Coumadin for anticoagulation INR ordered for January 18. Report any fever over 101.5 Fahrenheit, uncontrolled pain, increased drainage, foul odor of drainage, new or increased calf pain or shortness of breath, or any other significant complaints. Continue with BRYN hose on the operative extre mity until instructed otherwise. No driving until instructed otherwise. Follow up in approximately 10-14 days. Procedures Performed: see notes below List Procedures: Left total knee arthroplasty, right knee arthroscopy Results and Findings: Lab Pending Results 01/14/18 06:50: PT 10.0, INR (Anticoag Therapy) 1.00 01/15/18 05:25: WBC 11.7 H, RBC 4.64 L, Hgb 14.0, Hct 42.6, MCV 91.8, MCH 30.2, MCHC 32.9, RDW 13.5, Plt Count 194, MPV 9.8 01/15/18 05:25: PT 10.4, INR (Anticoag Therapy) 1.04 01/15/18 05:25: Sodium 139, Plasma Sodium 139, Potassium 4.3, Chloride 103, Carbon Dioxide 29.4, Anion Gap 10.9, BUN 14, Creatinine 1.16, Est GFR (Non-Af Amer) 66, BUN/Creatinine Ratio 12.1, Random Glucose 115 H, Calcium 8.2 Discharge Location: Home Disposition: Home self-care Condition: Good Discharge Activity: Activity as tolerated, Weight bearing, Other - with wheeled walker Discharge Diet: Low salt, Low fat/chol Referrals: Savanna Delgado MD [Primary Care Provider] - Prescriptions (Any new or edited meds): oxyCODONE HCL/ACETAMINOPHEN [Percocet 5 MG/325 MG] 2 tab PO Q4H PRN #30 tablet PRN Reason: Moderate Pain (Pain Scale 4-6) Sennosides/Docusate Sodium [Senokot-S] 2 tab PO HS #30 tablet Complete Home Medications List: Complete Home Medication List: Albuterol Sulfate [Albuterol Sulfate Hfa] 2 puff IH Q4H PRN 01/22/13 Multivitamins [Multivitamin Kimberlee] 1 cap PO DAILY 01/22/13 Pramipexole Di-HCl [Mirapex] 0.5 mg PO TID 06/28/15 Albuterol Sulfate [Albuterol Sulfate 2.5 MG/0.5ML] 2.5 mg IH Q6H #30 vial.neb 09/22/15 traMADol HCL [Ultram] 50 mg PO QID PRN #30 tab 09/17/17 furosemide 20 mg tablet 20 mg PO DAILY #90 tab 09/24/17 metoprolol tartrate 25 mg tablet 25 mg PO BID #60 tab 09/26/17 rosuvastatin 10 mg tablet 10 mg PO DAILY #90 tab 10/29/17 flecainide 100 mg tablet 50 mg PO BID #60 tab 11/22/17 Budesonide/Formoterol Fumarate [Symbicort 160-4.5 Mcg Inhaler] 10.2 gm INHALATION DAILY 11/27/17 potassium chloride ER 10 mEq tablet,extended release(part/cryst) 10 meq PO DAILY #90 tab 12/26/17 citalopram 40 mg tablet 40 mg PO DAILY #90 tab 01/02/18 warfarin 2.5 mg tablet 2.5 mg PO QMWF #36 tab 01/02/18 warfarin 5 mg tablet 5 mg PO WE tab 01/02/18 amlodipine 2.5 mg tablet 2.5 mg PO BID #60 tab 01/09/18 Warfarin Sodium 2.5 mg PO SUMOTUTHFRSA 01/14/18 Sennosides/Docusate Sodium [Senokot-S] 2 tab PO HS #30 tablet 01/15/18 oxyCODONE HCL/ACETAMINOPHEN [Percocet 5 MG/325 MG] 2 tab PO Q4H PRN #30 tablet 01/15/18
[2018-01-15 16:04] VITALS: BP 119/56
[2018-01-15] MEDS ORDERED: WARFARIN SODIUM 5 MG TABLET PO SCH (17:00)
== END 2018-01-15 15:55 | disposition home or self-care (01) | DRG 470 ==
LOC: MS 05:58 → EDSTATUS 08:00
PROVIDERS: ADMIT Orthopaedic Surgery; ATTEND Orthopaedic Surgery
CPT/HCPCS: 36415; 73560; 80048; 85027; 85610; 94640; 94660; 94664; 97110; 97116; 97162; 97165